=== PATIENT | male | born 1990 | race Caucasian/White ===

== ENCOUNTER 2017-03-06 06:31 | Emergency (ER) | payer SELFPAY | END 2017-03-06 07:30 | disposition home or self-care (01) | LOC: D.ER 06:31 | DX: T14.8 Other injury of unspecified body region (principal); X58.XXXA Exposure to other specified factors, initial encounter; Y93.89 Activity, other specified; Y92.410 Unspecified street and highway as the place of occurrence of the external cause; M54.9 Dorsalgia, unspecified ==

== ENCOUNTER 2017-03-15 16:26 | Emergency (ER) | payer SELFPAY | END 2017-03-15 20:05 | disposition home or self-care (01) | LOC: D.ER 16:26 | DX: S90.862A Insect bite (nonvenomous), left foot, initial encounter (principal); W57.XXXA Bitten or stung by nonvenomous insect and other nonvenomous arthropods, initial encounter; Y93.89 Activity, other specified; Y92.89 Other specified places as the place of occurrence of the external cause ==